=== PATIENT | female | born 1995 | race Caucasian/White ===

== ENCOUNTER 2018-10-31 20:39 | Emergency (ER) | payer OTHER ==
[~2018-10-31] VITALS: Ht 152.4 cm; Wt 69.9 kg
--- NOTE | 2018-10-31 20:43 | ED.ADGEN ---
Past History Past Medical History: Other Adult General Chief Complaint Chief Complaint ".. I am bleeding.. cramping .. and about 6 weeks ...".." [facility] but did not see a ... but the bleeding and cramping seems worse tonight..." HPI HPI Patient is a 23 year old female dependent who presents with above hx and complaints of vaginal bleeding, cramping at estimated 6 weeks . Patient has had 6 pregnancies, 3 live births, 2 miscarriages,. Patient denies any trauma. Patient denies any history immunosuppression. No history of STDs. Has had 4 lifetime sexual partners. No recent travel. Patient is taking vitamins. Patient normally follows at [facility] for primary care and [facility] for [facility] issues Review of Systems Review of Systems Constitutional: Denies fever or chills [] Eyes: Denies change in visual acuity, redness, or eye pain [] HENT: Denies nasal congestion or sore throat [] Respiratory: Denies cough or shortness of breath [] Cardiovascular: No additional information not addressed in HPI [] GI: Complaints of crampy abdominal pain, nausea. Denies, vomiting, bloody stools or diarrhea []does have vaginal bleeding : Denies dysuria or hematuria [] Musculoskeletal: Denies back pain or joint pain [] Integument: Denies rash or skin lesions [] Neurologic: Denies headache, focal weakness or sensory changes [] Endocrine: Denies polyuria or polydipsia [] All other systems were reviewed and found to be within normal limits, except as documented in this note. Family History Family History Noncontributory Current Medications Current Medications Current Medications Medications (Trade) Dose Ordered Sig/Antoinette Start Time Stop Time Status Last Admin Dose Admin Lactated Ringer's 1,000 ml @ 1,000 mls/hr Q1H 10/31/18 20:59 10/31/18 21:58 DC 10/31/18 20:59 1,000 MLS/HR Allergies Allergies Allergies Coded Allergies Type Severity Reaction Last Updated Verified No Known Drug Allergies 10/31/18 No Physical Exam Physical Exam Constitutional: Well developed, well nourished, moderate acute distress, non- toxic appearance. [] HENT: Normocephalic, atraumatic, bilateral external ears normal, oropharynx moist, no oral exudates, nose normal. [] Eyes: PERRLA, EOMI, conjunctiva normal, no discharge. [] Neck: Normal range of motion, no tenderness, supple, no stridor. [] Cardiovascular:Heart rate regular rhythm, no murmur [] Lungs & Thorax: Bilateral breath sounds clear to auscultation [] Abdomen: Bowel sounds normal, soft, mild pelvic tenderness, no masses, no pulsatile masses. [] Does have some cervical motion tenderness. Os appears to be open. Hard stool in rectal vault. Skin: Warm, dry, no erythema, no rash. Tattoos Back: No tenderness, no CVA tenderness. [] Extremities: No tenderness, no cyanosis, no clubbing, ROM intact, no edema. [] Neurologic: Alert and oriented X 3, normal motor function, normal sensory function, no focal deficits noted. [] Psychologic: Affect anxious, judgement normal, mood normal. [] Current Patient Data Vital Signs Vital Signs Date Time Temp Pulse Resp B/P (MAP) Pulse Ox O2 Delivery O2 Flow Rate FiO2 10/31/18 20:50 98.2 110 20 100 Lab Results Laboratory Tests Test 10/31/18 20:50 10/31/18 21:00 10/31/18 21:08 Urine Collection Type Unknown Urine Color Yellow Urine Clarity Cloudy Urine pH 8.0 Urine Specific [place] 1.015 Urine Protein Neg (NEG-TRACE) Urine Glucose (UA) Neg mg/dL (NEG) Urine Ketones (Stick) Neg mg/dL (NEG) Urine Blood Large (NEG) Urine Nitrite Neg (NEG) Urine Bilirubin Neg (NEG) Urine Urobilinogen Dipstick 0.2 mg/dL (0.2 mg/dL) Urine Leukocyte Esterase Neg (NEG) Urine RBC 11-20 /HPF (0-2) Urine WBC Occ /HPF (0-4) Urine Squamous Epithelial Cells Occ /LPF Urine Bacteria Few /HPF (0-FEW) Urine Opiates Screen Neg (NEG) Urine Methadone Screen Neg (NEG) Urine Barbiturates Neg (NEG) Urine Phencyclidine Screen Neg (NEG) Urine Amphetamine/Methamphetamine Neg (NEG) Urine Benzodiazepines Screen Neg (NEG) Urine Cocaine Screen Neg (NEG) Urine Cannabinoids Screen Neg (NEG) Urine Ethyl Alcohol Neg (NEG) White Blood Count 12.1 x10^3/uL (4.0-11.0) H Red Blood Count 4.05 x10^6/uL (3.50-5.40) Hemoglobin 12.2 g/dL (12.0-15.5) Hematocrit 36.9 % (36.0-47.0) Mean Corpuscular Volume 91 fL (79-100) Mean Corpuscular Hemoglobin 30 pg (25-35) Mean Corpuscular Hemoglobin Concent 33 g/dL (31-37) Red Cell Distribution Width 13.8 % (11.5-14.5) Platelet Count 368 x10^3/uL (140-400) Neutrophils (%) (Auto) 66 % (31-73) Lymphocytes (%) (Auto) 25 % (24-48) Monocytes (%) (Auto) 5 % (0-9) Eosinophils (%) (Auto) 2 % (0-3) Basophils (%) (Auto) 1 % (0-3) Neutrophils # (Auto) 8.0 x10^3uL (1.8-7.7) H Lymphocytes # (Auto) 3.0 x10^3/uL (1.0-4.8) Monocytes # (Auto) 0.6 x10^3/uL (0.0-1.1) Eosinophils # (Auto) 0.3 x10^3/uL (0.0-0.7) Basophils # (Auto) 0.2 x10^3/uL (0.0-0.2) Prothrombin Time 11.7 SEC (9.4-11.4) H Prothrombin Time INR 1.1 (0.9-1.1) PTT 27 SEC (23-33) Maternal Serum HCG Beta Subunit 4131 mIU/mL (0-6) H Sodium Level 143 mmol/L (136-145) Potassium Level 3.3 mmol/L (3.5-5.1) L Chloride Level 105 mmol/L (98-107) Carbon Dioxide Level 29 mmol/L (21-32) Anion Gap 9 (6-14) Blood Urea Nitrogen 6 mg/dL (7-20) L Creatinine 0.7 mg/dL (0.6-1.0) Estimated GFR (Cockcroft-Gault) 102.8 Glucose Level 87 mg/dL (70-99) Calcium Level 9.0 mg/dL (8.5-10.1) Total Bilirubin 0.2 mg/dL (0.2-1.0) Direct Bilirubin 0.1 mg/dL (0.0-0.2) Aspartate Amino Transferase (AST) 16 U/L (15-37) Alanine Aminotransferase (ALT) 21 U/L (14-59) Alkaline Phosphatase 86 U/L (46-116) Total Protein 7.2 g/dL (6.4-8.2) Albumin 3.8 g/dL (3.4-5.0) POC Urine HCG, Qualitative hcg positive (Negative) Microbiology 10/31/18 Wet Prep - Final, Complete Laboratory Tests Test 10/31/18 20:50 10/31/18 21:00 10/31/18 21:08 Urine Collection Type Unknown Urine Color Yellow Urine Clarity Cloudy Urine pH 8.0 Urine Specific [place] 1.015 Urine Protein Neg (NEG-TRACE) Urine Glucose (UA) Neg mg/dL (NEG) Urine Ketones (Stick) Neg mg/dL (NEG) Urine Blood Large (NEG) Urine Nitrite Neg (NEG) Urine Bilirubin Neg (NEG) Urine Urobilinogen Dipstick 0.2 mg/dL (0.2 mg/dL) Urine Leukocyte Esterase Neg (NEG) Urine RBC 11-20 /HPF (0-2) Urine WBC Occ /HPF (0-4) Urine Squamous Epithelial Cells Occ /LPF Urine Bacteria Few /HPF (0-FEW) Urine Opiates Screen Neg (NEG) Urine Methadone Screen Neg (NEG) Urine Barbiturates Neg (NEG) Urine Phencyclidine Screen Neg (NEG) Urine Amphetamine/Methamphetamine Neg (NEG) Urine Benzodiazepines Screen Neg (NEG) Urine Cocaine Screen Neg (NEG) Urine Cannabinoids Screen Neg (NEG) Urine Ethyl Alcohol Neg (NEG) White Blood Count 12.1 x10^3/uL (4.0-11.0) H Red Blood Count 4.05 x10^6/uL (3.50-5.40) Hemoglobin 12.2 g/dL (12.0-15.5) Hematocrit 36.9 % (36.0-47.0) Mean Corpuscular Volume 91 fL (79-100) Mean Corpuscular Hemoglobin 30 pg (25-35) Mean Corpuscular Hemoglobin Concent 33 g/dL (31-37) Red Cell Distribution Width 13.8 % (11.5-14.5) Platelet Count 368 x10^3/uL (140-400) Neutrophils (%) (Auto) 66 % (31-73) Lymphocytes (%) (Auto) 25 % (24-48) Monocytes (%) (Auto) 5 % (0-9) Eosinophils (%) (Auto) 2 % (0-3) Basophils (%) (Auto) 1 % (0-3) Neutrophils # (Auto) 8.0 x10^3uL (1.8-7.7) H Lymphocytes # (Auto) 3.0 x10^3/uL (1.0-4.8) Monocytes # (Auto) 0.6 x10^3/uL (0.0-1.1) Eosinophils # (Auto) 0.3 x10^3/uL (0.0-0.7) Basophils # (Auto) 0.2 x10^3/uL (0.0-0.2) Prothrombin Time 11.7 SEC (9.4-11.4) H Prothrombin Time INR 1.1 (0.9-1.1) PTT 27 SEC (23-33) Maternal Serum HCG Beta Subunit 4131 mIU/mL (0-6) H Sodium Level 143 mmol/L (136-145) Potassium Level 3.3 mmol/L (3.5-5.1) L Chloride Level 105 mmol/L (98-107) Carbon Dioxide Level 29 mmol/L (21-32) Anion Gap 9 (6-14) Blood Urea Nitrogen 6 mg/dL (7-20) L Creatinine 0.7 mg/dL (0.6-1.0) Estimated GFR (Cockcroft-Gault) 102.8 Glucose Level 87 mg/dL (70-99) Calcium Level 9.0 mg/dL (8.5-10.1) Total Bilirubin 0.2 mg/dL (0.2-1.0) Direct Bilirubin 0.1 mg/dL (0.0-0.2) Aspartate Amino Transferase (AST) 16 U/L (15-37) Alanine Aminotransferase (ALT) 21 U/L (14-59) Alkaline Phosphatase 86 U/L (46-116) Total Protein 7.2 g/dL (6.4-8.2) Albumin 3.8 g/dL (3.4-5.0) POC Urine HCG, Qualitative hcg positive (Negative) Microbiology 10/31/18 Wet Prep - Final, Complete EKG EKG [] Radiology/Procedures Radiology/Procedures [][address] [address] IMAGING REPORT Signed PATIENT: OLIVER HEATON I ACCOUNT: [id number] : 1995 LOCATION: ER AGE: 23 SEX: F EXAM STATUS: REG ER ORD. PHYSICIAN: JUSTA COULTER MD REASON: 6 weeks preg. and pain with bleeding PROCEDURE: PREG 1ST TRIMESTER INDICATION: Vaginal bleeding COMPARISON: None. TECHNIQUE: Grayscale and color ultrasound images uterus and adnexa. Transabdominal and transvaginal images obtained. FINDINGS: Uterus: 86 x 49 x 45 mm. Endometrial Stripe: 12 mm. Right Ovary: 22 x 13 x 11 mm. Left Ovary: 36 x 22 x 16 mm. Vascular flow identified to bilateral ovaries. Hypoechoic lesion left adnexa 18 x 13 mm. IMPRESSION: 1. No intrauterine gestational sac is identified at this time. Could be from early gestation prior to development of a gestational sac but would consider obtaining follow-up to exclude alternative causes such as ectopic given the patient's reported positive hCG. 2. Hypoechoic lesion left adnexa. Differential considerations include a complex lesion such as hemorrhagic cyst or endometrioma but follow-up could be obtained to ensure no increase in this structure to exclude alternative causes such as a solid ovarian lesion or ectopic. There is no gestational sac or pole seen at this location. 3. The endometrial stripe is heterogenous in nature. There is also some heterogeneity of the adjacent myometrium with an ill-defined appearance. Can be followed on future exams to ensure no increase to exclude pathologic causes such as fibroid or adenomyosis. Electronically signed by: Brian Yousif MD (10/31/2018 11:30 PM) [facility] DICTATED AND SIGNED BY: BRIAN YOUSIF MD DATE: 10/31/18 7898 CC: JUSTA COULTER MD; PCP,NO ~ Course & Med Decision Making Course & Med Decision Making Pertinent Labs and Imaging studies reviewed. (See chart for details) Patient continue pad counts. Patient continue her vitamin. Take only Tylenol for pain. Patient keep follow-up with her [employer]. Patient to take ultrasound disc for their comparison on the next OB visit. Must follow-up c ultures obtained tonight. Must have a repeat beta hCG in 3 days. Return if any concerns. [] Final Impression Final Impression 1. Threaten [] 2. Blood type O+ 3. Hemoglobin is 12.2 4. Beta hCG is 4131 Dragon Disclaimer Dragon Disclaimer This electronic medical record was generated, in whole or in part, using a voice recognition dictation system. Discharge Summary Visit Information Final Diagnosis Problems Medical Problems: (1) Threatened Status: Acute Brief Hospital Course Allergies Allergies Coded Allergies Type Severity Reaction Last Updated Verified No Known Drug Allergies 10/31/18 No Vital Signs Vital Signs Date Time Temp Pulse Resp B/P (MAP) Pulse Ox O2 Delivery O2 Flow Rate FiO2 10/31/18 20:50 98.2 110 20 100 Lab Results Laboratory Tests Test 10/31/18 20:50 10/31/18 21:00 10/31/18 21:08 Urine Collection Type Unknown Urine Color Yellow Urine Clarity Cloudy Urine pH 8.0 Urine Specific [place] 1.015 Urine Protein Neg (NEG-TRACE) Urine Glucose (UA) Neg mg/dL (NEG) Urine Ketones (Stick) Neg mg/dL (NEG) Urine Blood Large (NEG) Urine Nitrite Neg (NEG) Urine Bilirubin Neg (NEG) Urine Urobilinogen Dipstick 0.2 mg/dL (0.2 mg/dL) Urine Leukocyte Esterase Neg (NEG) Urine RBC 11-20 /HPF (0-2) Urine WBC Occ /HPF (0-4) Urine Squamous Epithelial Cells Occ /LPF Urine Bacteria Few /HPF (0-FEW) Urine Opiates Screen Neg (NEG) Urine Methadone Screen Neg (NEG) Urine Barbiturates Neg (NEG) Urine Phencyclidine Screen Neg (NEG) Urine Amphetamine/Methamphetamine Neg (NEG) Urine Benzodiazepines Screen Neg (NEG) Urine Cocaine Screen Neg (NEG) Urine Cannabinoids Screen Neg (NEG) Urine Ethyl Alcohol Neg (NEG) White Blood Count 12.1 x10^3/uL (4.0-11.0) Red Blood Count 4.05 x10^6/uL (3.50-5.40) Hemoglobin 12.2 g/dL (12.0-15.5) Hematocrit 36.9 % (36.0-47.0) Mean Corpuscular Volume 91 fL (79-100) Mean Corpuscular Hemoglobin 30 pg (25-35) Mean Corpuscular Hemoglobin Concent 33 g/dL (31-37) Red Cell Distribution Width 13.8 % (11.5-14.5) Platelet Count 368 x10^3/uL (140-400) Neutrophils (%) (Auto) 66 % (31-73) Lymphocytes (%) (Auto) 25 % (24-48) Monocytes (%) (Auto) 5 % (0-9) Eosinophils (%) (Auto) 2 % (0-3) Basophils (%) (Auto) 1 % (0-3) Neutrophils # (Auto) 8.0 x10^3uL (1.8-7.7) Lymphocytes # (Auto) 3.0 x10^3/uL (1.0-4.8) Monocytes # (Auto) 0.6 x10^3/uL (0.0-1.1) Eosinophils # (Auto) 0.3 x10^3/uL (0.0-0.7) Basophils # (Auto) 0.2 x10^3/uL (0.0-0.2) Prothrombin Time 11.7 SEC (9.4-11.4) Prothromb Time International Ratio 1.1 (0.9-1.1) Activated Partial Thromboplast Time 27 SEC (23-33) Maternal Serum HCG Beta Subunit 4131 mIU/mL (0-6) Sodium Level 143 mmol/L (136-145) Potassium Level 3.3 mmol/L (3.5-5.1) Chloride Level 105 mmol/L (98-107) Carbon Dioxide Level 29 mmol/L (21-32) Anion Gap 9 (6-14) Blood Urea Nitrogen 6 mg/dL (7-20) Creatinine 0.7 mg/dL (0.6-1.0) Estimated GFR (Cockcroft-Gault) 102.8 Glucose Level 87 mg/dL (70-99) Calcium Level 9.0 mg/dL (8.5-10.1) Total Bilirubin 0.2 mg/dL (0.2-1.0) Direct Bilirubin 0.1 mg/dL (0.0-0.2) Aspartate Amino Transf (AST/SGOT) 16 U/L (15-37) Alanine Aminotransferase (ALT/SGPT) 21 U/L (14-59) Alkaline Phosphatase 86 U/L (46-116) Total Protein 7.2 g/dL (6.4-8.2) Albumin 3.8 g/dL (3.4-5.0) Bedside Urine HCG, Qualitative hcg positive (Negative) Brief Hospital Course Ms. Heaton is a 23 old female who presented with threaten . Discharge Information Condition at Discharge: Improved, Stable Disposition/Orders: D/C to Home Dischare Medications Current Medications Lactated Ringer's 1,000 ml @ 1,000 mls/hr Q1H IV Last administered on 10/31/18at 20:59; Admin Dose 1,000 MLS/HR; Start 10/31/18 at 20:59; Stop 10/31/18 at 21:58; Status DC Dragon Disclaimer This chart was dictated in whole or in part using Voice Recognition software in a busy, high-work load, and often noisy Emergency Department environment. It may contain unintended and wholly unrecognized errors or omissions. JUSTA COULTER MD Oct 31, 2018 20:43
[2018-10-31] MEDS ORDERED: IV RINGERS SOLUTION,LACTATED 1,000 ML IV SCH (20:59)
[2018-10-31 21:27] LABS: BASO # 0.2 x10^3/uL (0.0-0.2); BASO % 1 % (0-3); EOS # 0.3 x10^3/uL (0.0-0.7); EOS % 2 % (0-3); HEMATOCRIT 36.9 % (36.0-47.0); HEMOGLOBIN 12.2 g/dL (12.0-15.5); LYMPH % 25 % (24-48); MEAN CORPUSCULAR HEMOGLOBIN 30 pg (25-35); MEAN CORPUSCULAR HGB CONC 33 g/dL (31-37); MEAN CORPUSCULAR VOLUME 91 fL (79-100); MONO # 0.6 x10^3/uL (0.0-1.1); MONO % 5 % (0-9); NEUT % 66 % (31-73); PLATELET COUNT 368 x10^3/uL (140-400); RED BLOOD COUNT 4.05 x10^6/uL (3.50-5.40); RED CELL DISTRIBUTION WIDTH 13.8 % (11.5-14.5); WHITE BLOOD COUNT 12.1 x10^3/uL (4.0-11.0)
[2018-10-31 21:33] LABS: BILIRUBIN,URINE NEG (NEG); CLARITY,URINE CLOUDY; COLOR,URINE YELLOW; GLUCOSE,URINE NEG (NEG)
[2018-10-31 21:34] LABS: BACTERIA,URINE FEW /HPF (0-FEW); NITRITE,URINE NEG (NEG); SQUAMOUS EPITHELIAL CELL,UR OCC /LPF; UROBILINOGEN,URINE 0.2 mg/dL (0.2 mg/dL); WBC,URINE OCC /HPF (0-4)
[2018-10-31 21:35] LABS: BARBITURATES NEG (NEG); BENZODIAZEPINES NEG (NEG); CANNABINOIDS NEG (NEG); COCAINE NEG (NEG); METHADONE NEG (NEG); OPIATES NEG (NEG); PHENCYCLIDINE NEG (NEG)
[2018-10-31 21:36] LABS: AMPHETAMINE/METHAMPHETAMINE NEG (NEG)
[2018-10-31 21:41] LABS: ALBUMIN 3.8 g/dL (3.4-5.0); CREATININE 0.7 mg/dL (0.6-1.0); DIRECT BILIRUBIN 0.1 mg/dL (0.0-0.2); GFR 102.8; POTASSIUM 3.3 mmol/L (3.5-5.1); TOTAL BILIRUBIN 0.2 mg/dL (0.2-1.0); TOTAL PROTEIN 7.2 g/dL (6.4-8.2)
--- NOTE | 2018-10-31 23:33 | RAD ---
INDICATION: Vaginal bleeding COMPARISON: None. TECHNIQUE: Grayscale and color ultrasound images uterus and adnexa. Transabdominal and transvaginal images obtained. FINDINGS: Uterus: 86 x 49 x 45 mm. Endometrial Stripe: 12 mm. Right Ovary: 22 x 13 x 11 mm. Left Ovary: 36 x 22 x 16 mm. Vascular flow identified to bilateral ovaries. Hypoechoic lesion left adnexa 18 x 13 mm. IMPRESSION: 1. No intrauterine gestational sac is identified at this time. Could be from early gestation prior to development of a gestational sac but would consider obtaining follow-up to exclude alternative causes such as ectopic given the patient's reported positive hCG. 2. Hypoechoic lesion left adnexa. Differential considerations include a complex lesion such as hemorrhagic cyst or endometrioma but follow-up could be obtained to ensure no increase in this structure to exclude alternative causes such as a solid ovarian lesion or ectopic. There is no gestational sac or pole seen at this location. 3. The endometrial stripe is heterogenous in nature. There is also some heterogeneity of the adjacent myometrium with an ill-defined appearance. Can be followed on future exams to ensure no increase to exclude pathologic causes such as fibroid or adenomyosis. Electronically signed by: Santino Archer MD (10/31/2018 11:30 PM) [facility]
[2018-10-31 23:55] VITALS: BP 120/78
[2018-11-02 17:07] LABS: CHLAMYDIA PROBE Negative (Negative)
== END 2018-10-31 23:59 | disposition home or self-care (01) ==
LOC: ER 20:39
DX: O20.0 Threatened abortion (principal); Z3A.01 Less than 8 weeks gestation of pregnancy
CPT/HCPCS: 36415; 76801; 80048; 80076; 80307; 81001; 81025; 84443; 84702; 85025; 85610; 85730; 86592; 86703; 86705; 86709; 86803; 86900; 86901; 87340; 87491; 87591; 99285; J7120; Q0111

== ENCOUNTER 2020-02-05 22:38 | Emergency (ER) | payer OTHER ==
[~2020-02-05] VITALS: Ht 152.4 cm; Wt 81.6 kg
--- NOTE | 2020-02-05 23:53 | RAD ---
Study: CR KNEE LEFT 4V Indication: Pain and swelling. Comparison: None. Findings: No acute fracture. Alignment is anatomic. Maintained joint spaces. No large knee joint effusion apparent by radiography. Impression: No acute osseous abnormality. Electronically signed by: SOLANGE CRUZ MD (02/05/2020 11:50 PM) [id number]
--- NOTE | 2020-02-06 00:06 | PHYS DOC ---
Past History Past Medical History: Other Past Surgical History: Appendectomy, Cholecystectomy Alcohol Use: None Drug Use: None Adult General Chief Complaint Chief Complaint: KNEE INJURY HPI HPI Patient is a 24-year-old female who presents to the emergency room complaining of left knee pain. Patient was tickling her 5-month-old on the bed when she felt sudden severe pain with movement in her knee. She states that when EMS got there it popped again prior to arrival. She has had this happen several times over the last several years. The first time was in high school. She is never seen orthopedic surgeon for it. She states typically she is able to get it back in place on her own. She was unable to get it back in place this time. Review of Systems Review of Systems General: Denies fever, chills, sweats, fatigue Eyes: Denies drainage, blurred vision, eye redness HENT: Denies rhinorrhea, sore throat, earache Respiratory: Denies cough, shortness of breath, wheezing Cardiac: Denies edema, palpitations, chest pain GI: Denies abdominal pain, Nausea, vomiting MSK: Denies back pain, neck pain Skin: Denies rash, jaundice Neuro: Denies headache, dizziness Psychiatric: Denies SI/HI Allergies Allergies Allergies Coded Allergies Type Severity Reaction Last Updated Verified No Known Drug Allergies 10/31/18 No Physical Exam Physical Exam General: Awake, alert, NAD. Well Nourished, well hydrated. Cooperative HEENT: Atraumatic, EOMI, PERRL, airway patent, moist oral mucosa Neck: Supple, trachea midline Respiratory: CTA bilaterally, normal effort, no wheezing/crackles CV: RRR, no murmur, cap refill <2 GI: Soft, nondistended, nontender, no masses MSK: No obvious deformities. Left knee with some lateral tenderness, no signifi cant swelling, no joint effusion Skin: Warm, dry, intact Neuro: A&O x3, speech NL, sensory and motor grossly intact, no focal deficits Psych: Normal affect, normal mood, not suicidal or homicidal EKG EKG [] Radiology/Procedures Radiology/Procedures Normal knee x-ray Heart Score Risk Factors: Risk Factors: DM, Current or recent (<one month) smoker, HTN, HLP, family history of CAD, obesity. Risk Scores: Risk Factors: DM, Current or recent (<one month) smoker, HTN, HLP, family history of CAD, obesity. Course & Med Decision Making Course & Med Decision Making Pertinent Labs and Imaging studies reviewed. (See chart for details) Patient is 24-year-old female presents to the emergency room complaining of knee pain. It appears that this may be due to a patella dislocation that resolved prior to arrival. X-rays are normal. We will place her in a knee immobilizer and have her follow-up with orthopedic surgery as this is a recurrent issue. Patient's test results and vitals while in the ED were fully reviewed and discussed with the patient. Patient is stable and at this time does not need admission to the hospital. We have discussed strict return precautions and the importance of following up with their Primary Care Physician. Patient stated understanding and was given an opportunity to ask any questions. Patient is in agreement with plan. Dragon Disclaimer Dragon Disclaimer This electronic medical record was generated, in whole or in part, using a voice recognition dictation system. Departure Departure: Impression: Primary Impression: Patellar dislocation Disposition: 01 DC HOME SELF CARE/HOMELESS Condition: STABLE Referrals: PCPDEB (PCP) HUDSON GAFFNEY MD Patient Instructions: Patellar Dislocation Scripts Tramadol Hcl/Acetaminophen (ULTRACET TABLET) 1 Each Tablet 1 TAB PO PRN TID PRN for pain MDD 3 Tablet(s) for 10 Days, #10 TAB 0 Refills Prov: DELBERT DAY MD 02/06/20 DELBERT DAY MD Feb 06, 2020 00:06
[2020-02-06 00:30] VITALS: BP 118/62
[2020-02-06] MEDS ORDERED: TRAM1TAB56 PO (00:37)
== END 2020-02-06 00:44 | disposition home or self-care (01) ==
LOC: ER 22:38
DX: S83.005A Unspecified dislocation of left patella, initial encounter (principal); X50.9XXA Other and unspecified overexertion or strenuous movements or postures, initial encounter; Y93.89 Activity, other specified; Y92.89 Other specified places as the place of occurrence of the external cause; Y99.8 Other external cause status
CPT/HCPCS: 29505; 73564; 99283

== ENCOUNTER 2020-03-26 19:48 | Emergency (ER) | payer OTHER ==
[~2020-03-26] VITALS: Ht 152.4 cm; Wt 81.6 kg
[~2020-03-26 19:48] MED LIST: TRAM1TAB56 PO
--- NOTE | 2020-03-26 19:54 | PHYS DOC ---
Past History Past Medical History: Anxiety, Depression, Other Additional Past Medical Histor: ADHD Past Surgical History: Appendectomy, Cholecystectomy, Tonsillectomy Alcohol Use: None Drug Use: None General Adult HPI: HPI: ".. I had surgery on my Lt knee today.. at [facility].. the did surgery to prevent my chronic knee dislocations. .. I ve had since age 15.. then also repaired.. a posterior cruciate ligament.. Dr. Ha ..they gave me some pain meds.. but it still hurts.. they said come to ED if still having pain..." Patient is a 24 year old female who presents with the above hx and complaints of pain post knee surgery to day at [facility] on [address]. Pt. history of chronic patellar dislocations and unstable left knee. Patient has had multiple patellar dislocations since age 15. Patient has dependent and follows at [facility]. No history of other current illnesses. No history of fever or chills. No history of Covid risk. No recent travel. Distal neurovascular appears to be intact. Sensation and movement intact. No excessive swelling in foot. Dressings were in place. Minimal bleeding noted. Capillary refill and sensation in foot is equal to Rt. foot. Review of Systems: Review of Systems: Constitutional: Denies fever or chills Eyes: Denies change in visual acuity HENT: Denies nasal congestion or sore throat Respiratory: Denies cough or shortness of breath Cardiovascular: Denies chest pain or edema GI: Denies abdominal pain, nausea, vomiting, bloody stools or diarrhea : Denies dysuria Musculoskeletal: Complains of left knee post surgery pain Integument: Denies rash Neurologic: Denies headache, focal weakness or sensory changes Endocrine: Denies polyuria or polydipsia Lymphatic: Denies swollen glands Psychiatric: Denies depression or anxiety Family History: Family History: Noncontributory to presentation Current Medications: Current Meds: See nursing for home meds Allergies: Allergies: Allergies Coded Allergies Type Severity Reaction Last Updated Verified No Known Drug Allergies 10/31/18 No Physical Exam: PE: Constitutional: Moderate acute distress, non-toxic appearance. [] HENT: Normocephalic, atraumatic, bilateral external ears normal, oropharynx mo ist, no oral exudates, nose normal. [] Eyes: PERRLA, EOMI, conjunctiva normal, no discharge. [] Neck: Normal range of motion, no tenderness, supple, no stridor. [] Cardiovascular:Heart rate regular rhythm, no murmur [] Lungs & Thorax: Bilateral breath sounds equal at apex on auscultation [] Abdomen: Bowel sounds normal, soft, no tenderness, no masses, no pulsatile masses. [] Skin: Warm, dry, no erythema, no rash. Tattoos Back: No tenderness, no CVA tenderness. [] Extremities: No tenderness, no cyanosis, no clubbing, ROM intact, no edema. Left knee exam as per HPI Neurologic: Alert and oriented X 3, normal motor function, normal sensory function, no focal deficits noted. Except findings in Lt. knee as per HPI. Psychologic: Affect anxious, judgement normal, mood normal. [] EKG: EKG: [] Radiology/Procedures: Radiology/Procedures: [] Heart Score: Risk Factors: Risk Factors: DM, Current or recent (<one month) smoker, HTN, HLP, family history of CAD, obesity. Risk Scores: Score 0 - 3: 2.5% MACE over next 6 weeks - Discharge Home Score 4 - 6: 20.3% MACE over next 6 weeks - Admit for Clinical Observation Score 7 - 10: 72.7% MACE over next 6 weeks - Early Invasive Strategies Course & Med Decision Making: Course & Med Decision Making Pertinent Labs and Imaging studies reviewed. (See chart for details) Patient must keep knee elevated above her heart. Advised patient sitting with her knee lower than her heart will cause it to swell and cause more pain. Patient use ice packs as directed. Patient use pain meds as directed. Patient keep follow-up with surgery as planned. Return if any concerns. Follow-up primary care. Impression: 1. Post Surgery Pain-history of chronic patellar dislocations [] Dragon Disclaimer: Dragon Disclaimer: This electronic medical record was generated, in whole or in part, using a voice recognition dictation system. Departure Departure: Referrals: ALEC PARSON DO (PCP) Elijah Disclaimer This chart was dictated in whole or in part using Voice Recognition software in a busy, high-work load, and often noisy Emergency Department environment. It may contain unintended and wholly unrecognized errors or omissions. JUSTA COULTER MD Mar 26, 2020 19:54
[2020-03-26] MEDS ORDERED: MORPHINE SULFATE 10 MG/ML SYRINGE. SQ ONE (20:30)
[2020-03-26 20:55] VITALS: BP 120/77
[2020-03-26] MEDS ORDERED: zofran (20:55)
[2020-03-26] MEDS ORDERED: HYDR-2155 PO (20:55)
[2020-03-26] MEDS ORDERED: birth control pill (20:55)
[2020-03-26] MEDS ORDERED: OMEP20TA63 PO (20:55)
[2020-03-26] MEDS ORDERED: zoloft (20:55)
[2020-03-26] MEDS ORDERED: IBUP800T19 PO (20:55)
[2020-03-26] MEDS ORDERED: adderall (20:55)
== END 2020-03-26 21:00 | disposition home or self-care (01) ==
LOC: ER 19:48
DX: G89.18 Other acute postprocedural pain (principal); M22.02 Recurrent dislocation of patella, left knee; M25.562 Pain in left knee; Z98.890 Other specified postprocedural states
CPT/HCPCS: 96372; 99284; J2270